=== PATIENT | male | born 1945 | race Caucasian/White ===

== ENCOUNTER 2018-07-05 16:14 | Inpatient (IN) ==
[2018-07-05] MEDS ORDERED: Sod Chloride 0.9% Inj 1,000 ML IV.CONT SCH (17:30)
--- NOTE | 2018-07-05 17:31 | ED ---
HPI General Chief Complaint: Weakness Stated Complaint: weakness Time Seen by Provider: 07/05/18 17:02 Source: patient and family Mode of arrival: ambulatory Limitations: no limitations History of Present Illness HPI Narrative: 72-year-old male was brought in by his for mental confusion and slurred speech. Patient's states that his symptoms started this afternoon around 2 PM. Patient's states that patient seemed to be confused and with slurring speech. Patient's reported no facial drooping, no weakness or numbness of the arms or legs. Patient's reported no history of TIA or CVA. Patient has history of atrial fibrillation on Xarelto. Patient also has history hypertension, diabetes and restless leg syndrome. Patient's reported no recent head injury. Onset (ago): hour(s) Timing confirmed by: spouse Location: Reports speech History of same: No Severity: moderate Quality: Reports constant Relieving factors: none Exacerbating factors: none Context: Reports sudden onset On Anticoagulants: Yes Associated symptoms: Reports confusion Treatments Prior to Arrival: Reports none Related Data Home Medications Medication Instructions Recorded Confirmed allopurinol 200 mg PO DAILY 06/16/18 07/05/18 dexlansoprazole [Dexilant] 60 mg PO DAILY 06/16/18 07/05/18 diltiazem HCl 300 mg PO DAILY 06/16/18 07/05/18 insulin NPH isoph U-100 human 48 unit SUBCUT QPM 06/16/18 07/05/18 rivaroxaban [Xarelto] 20 mg PO DAILY 06/16/18 07/05/18 sitagliptin-metformin [Janumet] 1 tab PO BID 06/16/18 07/05/18 candesartan-hydrochlorothiazid 1 tab PO DAILY 07/05/18 07/05/18 Previous Rx's Medication Instructions Recorded sertraline [Zoloft] 25 mg PO DAILY #30 tab 07/07/18 Allergies Allergy/AdvReac Type Severity Reaction Status Date / Time Iodine and Iodide Containing Allergy Severe Swelling Verified 06/16/18 12:30 Produc of Lip/Tongue/Throat meperidine [From Demerol] Allergy Severe Hives Verified 06/16/18 12:30 phenytoin [From Dilantin] Allergy Severe Hives Verified 06/16/18 12:30 Review of Systems ROS: all other systems reviewed are negative [facility] Medical History Medical History Afib (Acute) Diabetes (Acute) GERD (gastroesophageal reflux disease) (Acute) Gout (Acute) HTN (hypertension) (Acute) Surgical History Surgical History History of cholecystectomy (Acute) Social History Social History Substance History: No History of Abuse Second Hand Smoke Exposure: No Smoking Status: Never smoker Tobacco Type: Cigarettes How Often Do You Have a Drink Containing Alcohol: Never Recent Travel in [facility] within the Last 8 Weeks: No Recent Out of Country Travel within the Last 8 Weeks: No Immunization History Tetanus Immunization: Unsure Exam Narrative Exam Narrative: GENERAL: Well-nourished, well-developed patient. SKIN: Focused skin assessment warm/dry. HEAD: Normocephalic. EYES: No scleral icterus. No injection or drainage. NECK: Supple, trachea midline. No JVD or lymphadenopathy. CARDIOVASCULAR: Regular rate and rhythm without murmurs, gallops, or rubs. RESPIRATORY: Breath sounds equal bilaterally. No accessory muscle use. GASTROINTESTINAL: Abdomen soft, non-tender, nondistended. MUSCULOSKELETAL: No cyanosis, or edema. BACK: Nontender without obvious deformity. No CVA tenderness. Neurologic exam: Patient is awake and alert. Patient with mild slurring speech. Patient has no facial drooping. Patient has no weakness or numbness of the arms on the legs. Visual field intact. Course Initial Documented Vital Signs Pulse Rate 96 H 07/05/18 16:25 Respiratory Rate 17 07/05/18 16:25 Blood Pressure 182/89 H 07/05/18 16:25 Pulse Oximetry 100 07/05/18 16:25 Last Documented Vital Signs Temperature 97.7 F 07/07/18 08:00 Pulse Rate 87 07/07/18 08:00 Respiratory Rate 20 07/07/18 08:00 Blood Pressure 155/76 H 07/07/18 08:00 Pulse Oximetry 94 L 07/07/18 08:00 Sign Out Sign Out Data: Patient Sign Out occurred on 07/05/18 at 19:30. Patient's care was discussed, and care was transferred from [facility] to [facility]. Sign Out Comment: Check CMP. Patient will be admitted for TIA versus CVA. Last updated by Anders Patterson MD at 07/05/18 19:14 Post-Handoff Eval: Patient was signed out to me to follow-up on the CMP result. The previous ER physician who saw the patient diagnosed the patient with TIA given the history at the presentation. Please refer to his history and physical for further details. He had discussed the case with the hospitalist Dr. Mendez who wanted the CMP resulted prior to the admission. The signout to me was to follow-up on the CMP. The blood test results are back and within normal limits. Patient is admitted to the hospitalist at this point. Patient is a [place] citizen and the insurance details are being sorted out given [place]. Medical Decision Making MDM Narrative Medical decision making narrative: 72-year-old male with slurring speech started 2 PM this afternoon. Patient with mental confusion also. Patient has history of atrial fibrillation on Xarelto. Patient has history of severe allergy to IV contrast. I spoke with Dr. Sanchez, neurologist surgical product sales consultant. We will not call a stroke alert on the patient since we cannot do CTA or CT perfusion. Patient is on Xarelto. Normal saline solution 70 cc an hour. Head of bed flat. O2 2 L nasal cannula. Medical Screen Exam Complete: Yes Emergency Medical Condition: Yes Differential Diagnosis Differential Diagnosis: Differential diagnosis including TIA, CVA. Lab Data Lab results reviewed: Yes I reviewed the patient's lab results. Result diagrams: 07/07/18 06:16 07/07/18 06:16 Lab Results 07/05/18 07/05/18 07/05/18 Range/Units 17:30 17:30 17:30 WBC 13.5 H (4.0-11.0) th/mm3 RBC 4.67 (4.50-5.90) mil/mm3 Hgb 12.9 L (13.0-17.0) gm/dL Hct 39.1 (39.0-51.0) % MCV 83.8 (80.0-100.0) fL MCH 27.7 (27.0-34.0) pg MCHC 33.1 (32.0-36.0) % RDW 16.0 (11.6-17.2) % Plt Count 282 (150-450) th/mm3 MPV 9.6 (7.0-11.0) fL Neut % (Auto) 80.2 H (16.0-70.0) % Lymph % (Auto) 12.0 (9.0-44.0) % [place] % (Auto) 6.5 (0.0-8.0) % Eos % (Auto) 0.5 (0.0-4.0) % Baso % (Auto) 0.8 (0.0-2.0) % Neut # (Auto) 10.9 H (1.8-7.7) th/mm3 Lymph # (Auto) 1.6 (1.0-4.8) th/mm3 [place] # (Auto) 0.9 (0.0-0.9) th/mm3 Eos # (Auto) 0.1 (0.0-0.4) th/mm3 Baso # (Auto) 0.1 (0.0-0.2) th/mm3 WBC Differential . Differential Comment Auto diff final ESR (0-20) mm/hr PT 11.4 (9.8-11.6) sec INR 1.1 Ratio APTT 27.5 (23.4-31.7) sec Fibrinogen 370 (227-377) mg/dL Sodium (136-145) meq/L Potassium (3.5-5.1) meq/L Chloride (98-107) meq/L Carbon Dioxide (21.0-32.0) meq/L Anion Gap (5-15) meq/L BUN (7-18) mg/dL Creatinine (0.60-1.30) mg/dL Estimated GFR (>89) mL/min POC Glucose (68-110) mg/dl Random Glucose (74-106) mg/dL Hemoglobin A1c (4.3-6.0) % Calcium (8.5-10.1) mg/dL Magnesium (1.5-2.5) mg/dL Total Bilirubin (0.2-1.0) mg/dL AST (15-37) U/L ALT (12-78) U/L Alkaline Phosphatase (45-117) U/L Ammonia (11-32) mcmol/L Total Creatine Kinase 43 (39-308) U/L Troponin I Less than 0.02 L (0.02-0.05) ng/mL C-Reactive Protein (0.00-0.30) mg/dL Total Protein (6.4-8.2) g/dL Albumin (3.4-5.0) g/dL Triglycerides (42-150) mg/dL Cholesterol (120-200) mg/dL LDL Cholesterol, Calc (0-99) mg/dL HDL Cholesterol (40.0-60.0) mg/dL Cholesterol/HDL Ratio Ratio Aldolase (< OR = 8.1) U/L Vitamin B12 (193-986) pg/mL TSH (0.358-3.740) uIU/mL Urine Color (Yellw/Straw) Urine Clarity (Clear) Urine pH (5.0-8.5) Ur Specific [place] (1.002-1.035) Urine Protein (Neg-Trace) mg/dL Urine Glucose (UA) (Negative) mg/dL Urine Ketones (Negative) mg/dL Urine Occult Blood (Negative) Urine Nitrate (Negative) Urine Bilirubin (Negative) Urine Urobilinogen (Less than 2) mg/dL Ur Leukocyte Esterase (Negative) Urine RBC (0-3) /hpf Urine WBC (0-5) /hpf Ur Squamous Epith Cells (0-5) /hpf Hyaline Casts (0-3) /lpf Urine Mucus (Occasional) /lpf Micro UA Comment Ur Microscopic Review Urine Culture Comments Urine Opiates Screen (Neg) Ur Barbiturates Screen (Neg) Ur Amphetamines Screen (Neg) U Benzodiazepines Scrn (Neg) Urine Cocaine Screen (Neg) U Cannabinoids Screen (Neg) Blood Type Blood Type Recheck Antibody Screen 07/05/18 07/05/18 07/05/18 Range/Units 17:30 17:50 19:15 WBC (4.0-11.0) th/mm3 RBC (4.50-5.90) mil/mm3 Hgb (13.0-17.0) gm/dL Hct (39.0-51.0) % MCV (80.0-100.0) fL MCH (27.0-34.0) pg MCHC (32.0-36.0) % RDW (11.6-17.2) % Plt Count (150-450) th/mm3 MPV (7.0-11.0) fL Neut % (Auto) (16.0-70.0) % Lymph % (Auto) (9.0-44.0) % [place] % (Auto) (0.0-8.0) % Eos % (Auto) (0.0-4.0) % Baso % (Auto) (0.0-2.0) % Neut # (Auto) (1.8-7.7) th/mm3 Lymph # (Auto) (1.0-4.8) th/mm3 [place] # (Auto) (0.0-0.9) th/mm3 Eos # (Auto) (0.0-0.4) th/mm3 Baso # (Auto) (0.0-0.2) th/mm3 WBC Differential Differential Comment ESR (0-20) mm/hr PT (9.8-11.6) sec INR Ratio APTT (23.4-31.7) sec Fibrinogen (227-377) mg/dL Sodium 134 L (136-145) meq/L Potassium 3.6 (3.5-5.1) meq/L Chloride 98 (98-107) meq/L Carbon Dioxide 21.2 (21.0-32.0) meq/L Anion Gap 15 (5-15) meq/L BUN 13 (7-18) mg/dL Creatinine 1.38 H (0.60-1.30) mg/dL Estimated GFR 51 L (>89) mL/min POC Glucose (68-110) mg/dl Random Glucose 139 H (74-106) mg/dL Hemoglobin A1c (4.3-6.0) % Calcium 9.4 (8.5-10.1) mg/dL Magnesium (1.5-2.5) mg/dL Total Bilirubin 0.5 (0.2-1.0) mg/dL AST 15 (15-37) U/L ALT 20 (12-78) U/L Alkaline Phosphatase 108 (45-117) U/L Ammonia (11-32) mcmol/L Total Creatine Kinase (39-308) U/L Troponin I (0.02-0.05) ng/mL C-Reactive Protein (0.00-0.30) mg/dL Total Protein 7.5 (6.4-8.2) g/dL Albumin 3.6 (3.4-5.0) g/dL Triglycerides (42-150) mg/dL Cholesterol (120-200) mg/dL LDL Cholesterol, Calc (0-99) mg/dL HDL Cholesterol (40.0-60.0) mg/dL Cholesterol/HDL Ratio Ratio Aldolase (< OR = 8.1) U/L Vitamin B12 (193-986) pg/mL TSH (0.358-3.740) uIU/mL Urine Color Yellow (Yellw/Straw) Urine Clarity Hazy H (Clear) Urine pH 7.0 (5.0-8.5) Ur Specific [place] 1.013 (1.002-1.035) Urine Protein 30 H (Neg-Trace) mg/dL Urine Glucose (UA) Negative (Negative) mg/dL Urine Ketones 20 (Negative) mg/dL Urine Occult Blood Negative (Negative) Urine Nitrate Negative (Negative) Urine Bilirubin Negative (Negative) Urine Urobilinogen Less than 2 (Less than 2) mg/dL Ur Leukocyte Esterase Negative (Negative) Urine RBC 1 (0-3) /hpf Urine WBC 8 H (0-5) /hpf Ur Squamous Epith Cells 3 (0-5) /hpf Hyaline Casts 6 (0-3) /lpf Urine Mucus Many H (Occasional) /lpf Micro UA Comment Cath-culture ind Ur Microscopic Review Not Reportable Urine Culture Comments Cath-cult indicated Urine Opiates Screen (Neg) Ur Barbiturates Screen (Neg) Ur Amphetamines Screen (Neg) U Benzodiazepines Scrn (Neg) Urine Cocaine Screen (Neg) U Cannabinoids Screen (Neg) Blood Type O Positive Blood Type Recheck Required Antibody Screen Negative 07/06/18 07/06/18 07/06/18 Range/Units 00:21 06:27 07:36 WBC (4.0-11.0) th/mm3 RBC (4.50-5.90) mil/mm3 Hgb (13.0-17.0) gm/dL Hct (39.0-51.0) % MCV (80.0-100.0) fL MCH (27.0-34.0) pg MCHC (32.0-36.0) % RDW (11.6-17.2) % Plt Count (150-450) th/mm3 MPV (7.0-11.0) fL Neut % (Auto) (16.0-70.0) % Lymph % (Auto) (9.0-44.0) % [place] % (Auto) (0.0-8.0) % Eos % (Auto) (0.0-4.0) % Baso % (Auto) (0.0-2.0) % Neut # (Auto) (1.8-7.7) th/mm3 Lymph # (Auto) (1.0-4.8) th/mm3 [place] # (Auto) (0.0-0.9) th/mm3 Eos # (Auto) (0.0-0.4) th/mm3 Baso # (Auto) (0.0-0.2) th/mm3 WBC Differential Differential Comment ESR (0-20) mm/hr PT (9.8-11.6) sec INR Ratio APTT (23.4-31.7) sec Fibrinogen (227-377) mg/dL Sodium (136-145) meq/L Potassium (3.5-5.1) meq/L Chloride (98-107) meq/L Carbon Dioxide (21.0-32.0) meq/L Anion Gap (5-15) meq/L BUN (7-18) mg/dL Creatinine (0.60-1.30) mg/dL Estimated GFR (>89) mL/min POC Glucose 133 H 139 H (68-110) mg/dl Random Glucose (74-106) mg/dL Hemoglobin A1c 6.7 H (4.3-6.0) % Calcium (8.5-10.1) mg/dL Magnesium (1.5-2.5) mg/dL Total Bilirubin (0.2-1.0) mg/dL AST (15-37) U/L ALT (12-78) U/L Alkaline Phosphatase (45-117) U/L Ammonia (11-32) mcmol/L Total Creatine Kinase (39-308) U/L Troponin I (0.02-0.05) ng/mL C-Reactive Protein (0.00-0.30) mg/dL Total Protein (6.4-8.2) g/dL Albumin (3.4-5.0) g/dL Triglycerides (42-150) mg/dL Cholesterol (120-200) mg/dL LDL Cholesterol, Calc (0-99) mg/dL HDL Cholesterol (40.0-60.0) mg/dL Cholesterol/HDL Ratio Ratio Aldolase (< OR = 8.1) U/L Vitamin B12 (193-986) pg/mL TSH (0.358-3.740) uIU/mL Urine Color (Yellw/Straw) Urine Clarity (Clear) Urine pH (5.0-8.5) Ur Specific [place] (1.002-1.035) Urine Protein (Neg-Trace) mg/dL Urine Glucose (UA) (Negative) mg/dL Urine Ketones (Negative) mg/dL Urine Occult Blood (Negative) Urine Nitrate (Negative) Urine Bilirubin (Negative) Urine Urobilinogen (Less than 2) mg/dL Ur Leukocyte Esterase (Negative) Urine RBC (0-3) /hpf Urine WBC (0-5) /hpf Ur Squamous Epith Cells (0-5) /hpf Hyaline Casts (0-3) /lpf Urine Mucus (Occasional) /lpf Micro UA Comment Ur Microscopic Review Urine Culture Comments Urine Opiates Screen (Neg) Ur Barbiturates Screen (Neg) Ur Amphetamines Screen (Neg) U Benzodiazepines Scrn (Neg) Urine Cocaine Screen (Neg) U Cannabinoids Screen (Neg) Blood Type Blood Type Recheck Antibody Screen 07/06/18 07/06/18 07/06/18 Range/Units 07:36 08:17 10:05 WBC (4.0-11.0) th/mm3 RBC (4.50-5.90) mil/mm3 Hgb (13.0-17.0) gm/dL Hct (39.0-51.0) % MCV (80.0-100.0) fL MCH (27.0-34.0) pg MCHC (32.0-36.0) % RDW (11.6-17.2) % Plt Count (150-450) th/mm3 MPV (7.0-11.0) fL Neut % (Auto) (16.0-70.0) % Lymph % (Auto) (9.0-44.0) % [place] % (Auto) (0.0-8.0) % Eos % (Auto) (0.0-4.0) % Baso % (Auto) (0.0-2.0) % Neut # (Auto) (1.8-7.7) th/mm3 Lymph # (Auto) (1.0-4.8) th/mm3 [place] # (Auto) (0.0-0.9) th/mm3 Eos # (Auto) (0.0-0.4) th/mm3 Baso # (Auto) (0.0-0.2) th/mm3 WBC Differential Differential Comment ESR (0-20) mm/hr PT (9.8-11.6) sec INR Ratio APTT (23.4-31.7) sec Fibrinogen (227-377) mg/dL Sodium (136-145) meq/L Potassium (3.5-5.1) meq/L Chloride (98-107) meq/L Carbon Dioxide (21.0-32.0) meq/L Anion Gap (5-15) meq/L BUN (7-18) mg/dL Creatinine (0.60-1.30) mg/dL Estimated GFR (>89) mL/min POC Glucose 149 H (68-110) mg/dl Random Glucose (74-106) mg/dL Hemoglobin A1c (4.3-6.0) % Calcium (8.5-10.1) mg/dL Magnesium (1.5-2.5) mg/dL Total Bilirubin (0.2-1.0) mg/dL AST (15-37) U/L ALT (12-78) U/L Alkaline Phosphatase (45-117) U/L Ammonia (11-32) mcmol/L Total Creatine Kinase (39-308) U/L Troponin I (0.02-0.05) ng/mL C-Reactive Protein (0.00-0.30) mg/dL Total Protein (6.4-8.2) g/dL Albumin (3.4-5.0) g/dL Triglycerides 136 (42-150) mg/dL Cholesterol 113 L (120-200) mg/dL LDL Cholesterol, Calc 43 (0-99) mg/dL HDL Cholesterol 43.0 (40.0-60.0) mg/dL Cholesterol/HDL Ratio 2.62 Ratio Aldolase (< OR = 8.1) U/L Vitamin B12 (193-986) pg/mL TSH (0.358-3.740) uIU/mL Urine Color (Yellw/Straw) Urine Clarity (Clear) Urine pH (5.0-8.5) Ur Specific [place] (1.002-1.035) Urine Protein (Neg-Trace) mg/dL Urine Glucose (UA) (Negative) mg/dL Urine Ketones (Negative) mg/dL Urine Occult Blood (Negative) Urine Nitrate (Negative) Urine Bilirubin (Negative) Urine Urobilinogen (Less than 2) mg/dL Ur Leukocyte Esterase (Negative) Urine RBC (0-3) /hpf Urine WBC (0-5) /hpf Ur Squamous Epith Cells (0-5) /hpf Hyaline Casts (0-3) /lpf Urine Mucus (Occasional) /lpf Micro UA Comment Ur Microscopic Review Urine Culture Comments Urine Opiates Screen Neg (Neg) Ur Barbiturates Screen Neg (Neg) Ur Amphetamines Screen Neg (Neg) U Benzodiazepines Scrn Neg (Neg) Urine Cocaine Screen Neg (Neg) U Cannabinoids Screen Neg (Neg) Blood Type Blood Type Recheck Antibody Screen 07/06/18 07/06/18 07/06/18 Range/Units 12:21 12:21 12:21 WBC (4.0-11.0) th/mm3 RBC (4.50-5.90) mil/mm3 Hgb (13.0-17.0) gm/dL Hct (39.0-51.0) % MCV (80.0-100.0) fL MCH (27.0-34.0) pg MCHC (32.0-36.0) % RDW (11.6-17.2) % Plt Count (150-450) th/mm3 MPV (7.0-11.0) fL Neut % (Auto) (16.0-70.0) % Lymph % (Auto) (9.0-44.0) % [place] % (Auto) (0.0-8.0) % Eos % (Auto) (0.0-4.0) % Baso % (Auto) (0.0-2.0) % Neut # (Auto) (1.8-7.7) th/mm3 Lymph # (Auto) (1.0-4.8) th/mm3 [place] # (Auto) (0.0-0.9) th/mm3 Eos # (Auto) (0.0-0.4) th/mm3 Baso # (Auto) (0.0-0.2) th/mm3 WBC Differential Differential Comment ESR 12 (0-20) mm/hr PT (9.8-11.6) sec INR Ratio APTT (23.4-31.7) sec Fibrinogen (227-377) mg/dL Sodium (136-145) meq/L Potassium (3.5-5.1) meq/L Chloride (98-107) meq/L Carbon Dioxide (21.0-32.0) meq/L Anion Gap (5-15) meq/L BUN (7-18) mg/dL Creatinine (0.60-1.30) mg/dL Estimated GFR (>89) mL/min POC Glucose (68-110) mg/dl Random Glucose (74-106) mg/dL Hemoglobin A1c (4.3-6.0) % Calcium (8.5-10.1) mg/dL Magnesium (1.5-2.5) mg/dL Total Bilirubin (0.2-1.0) mg/dL AST (15-37) U/L ALT (12-78) U/L Alkaline Phosphatase (45-117) U/L Ammonia 16 (11-32) mcmol/L Total Creatine Kinase 77 (39-308) U/L Troponin I (0.02-0.05) ng/mL C-Reactive Protein 1.10 H (0.00-0.30) mg/dL Total Protein (6.4-8.2) g/dL Albumin (3.4-5.0) g/dL Triglycerides (42-150) mg/dL Cholesterol (120-200) mg/dL LDL Cholesterol, Calc (0-99) mg/dL HDL Cholesterol (40.0-60.0) mg/dL Cholesterol/HDL Ratio Ratio Aldolase (< OR = 8.1) U/L Vitamin B12 296 (193-986) pg/mL TSH 0.821 (0.358-3.740) uIU/mL Urine Color (Yellw/Straw) Urine Clarity (Clear) Urine pH (5.0-8.5) Ur Specific [place] (1.002-1.035) Urine Protein (Neg-Trace) mg/dL Urine Glucose (UA) (Negative) mg/dL Urine Ketones (Negative) mg/dL Urine Occult Blood (Negative) Urine Nitrate (Negative) Urine Bilirubin (Negative) Urine Urobilinogen (Less than 2) mg/dL Ur Leukocyte Esterase (Negative) Urine RBC (0-3) /hpf Urine WBC (0-5) /hpf Ur Squamous Epith Cells (0-5) /hpf Hyaline Casts (0-3) /lpf Urine Mucus (Occasional) /lpf Micro UA Comment Ur Microscopic Review Urine Culture Comments Urine Opiates Screen (Neg) Ur Barbiturates Screen (Neg) Ur Amphetamines Screen (Neg) U Benzodiazepines Scrn (Neg) Urine Cocaine Screen (Neg) U Cannabinoids Screen (Neg) Blood Type Blood Type Recheck Antibody Screen 07/06/18 07/06/18 07/06/18 Range/Units 12:21 12:37 16:39 WBC (4.0-11.0) th/mm3 RBC (4.50-5.90) mil/mm3 Hgb (13.0-17.0) gm/dL Hct (39.0-51.0) % MCV (80.0-100.0) fL MCH (27.0-34.0) pg MCHC (32.0-36.0) % RDW (11.6-17.2) % Plt Count (150-450) th/mm3 MPV (7.0-11.0) fL Neut % (Auto) (16.0-70.0) % Lymph % (Auto) (9.0-44.0) % [place] % (Auto) (0.0-8.0) % Eos % (Auto) (0.0-4.0) % Baso % (Auto) (0.0-2.0) % Neut # (Auto) (1.8-7.7) th/mm3 Lymph # (Auto) (1.0-4.8) th/mm3 [place] # (Auto) (0.0-0.9) th/mm3 Eos # (Auto) (0.0-0.4) th/mm3 Baso # (Auto) (0.0-0.2) th/mm3 WBC Differential Differential Comment ESR (0-20) mm/hr PT (9.8-11.6) sec INR Ratio APTT (23.4-31.7) sec Fibrinogen (227-377) mg/dL Sodium (136-145) meq/L Potassium (3.5-5.1) meq/L Chloride (98-107) meq/L Carbon Dioxide (21.0-32.0) meq/L Anion Gap (5-15) meq/L BUN (7-18) mg/dL Creatinine (0.60-1.30) mg/dL Estimated GFR (>89) mL/min POC Glucose 128 H 133 H (68-110) mg/dl Random Glucose (74-106) mg/dL Hemoglobin A1c (4.3-6.0) % Calcium (8.5-10.1) mg/dL Magnesium (1.5-2.5) mg/dL Total Bilirubin (0.2-1.0) mg/dL AST (15-37) U/L ALT (12-78) U/L Alkaline Phosphatase (45-117) U/L Ammonia (11-32) mcmol/L Total Creatine Kinase (39-308) U/L Troponin I (0.02-0.05) ng/mL C-Reactive Protein (0.00-0.30) mg/dL Total Protein (6.4-8.2) g/dL Albumin (3.4-5.0) g/dL Triglycerides (42-150) mg/dL Cholesterol (120-200) mg/dL LDL Cholesterol, Calc (0-99) mg/dL HDL Cholesterol (40.0-60.0) mg/dL Cholesterol/HDL Ratio Ratio Aldolase 4.1 (< OR = 8.1) U/L Vitamin B12 (193-986) pg/mL TSH (0.358-3.740) uIU/mL Urine Color (Yellw/Straw) Urine Clarity (Clear) Urine pH (5.0-8.5) Ur Specific [place] (1.002-1.035) Urine Protein (Neg-Trace) mg/dL Urine Glucose (UA) (Negative) mg/dL Urine Ketones (Negative) mg/dL Urine Occult Blood (Negative) Urine Nitrate (Negative) Urine Bilirubin (Negative) Urine Urobilinogen (Less than 2) mg/dL Ur Leukocyte Esterase (Negative) Urine RBC (0-3) /hpf Urine WBC (0-5) /hpf Ur Squamous Epith Cells (0-5) /hpf Hyaline Casts (0-3) /lpf Urine Mucus (Occasional) /lpf Micro UA Comment Ur Microscopic Review Urine Culture Comments Urine Opiates Screen (Neg) Ur Barbiturates Screen (Neg) Ur Amphetamines Screen (Neg) U Benzodiazepines Scrn (Neg) Urine Cocaine Screen (Neg) U Cannabinoids Screen (Neg) Blood Type Blood Type Recheck Antibody Screen 07/06/18 07/07/18 07/07/18 Range/Units 22:16 06:16 06:16 WBC 9.5 (4.0-11.0) th/mm3 RBC 4.73 (4.50-5.90) mil/mm3 Hgb 13.1 (13.0-17.0) gm/dL Hct 39.0 (39.0-51.0) % MCV 82.4 (80.0-100.0) fL MCH 27.6 (27.0-34.0) pg MCHC 33.5 (32.0-36.0) % RDW 16.4 (11.6-17.2) % Plt Count 274 (150-450) th/mm3 MPV 9.6 (7.0-11.0) fL Neut % (Auto) 62.1 (16.0-70.0) % Lymph % (Auto) 23.4 (9.0-44.0) % [place] % (Auto) 9.5 H (0.0-8.0) % Eos % (Auto) 3.8 (0.0-4.0) % Baso % (Auto) 1.2 (0.0-2.0) % Neut # (Auto) 5.9 (1.8-7.7) th/mm3 Lymph # (Auto) 2.2 (1.0-4.8) th/mm3 [place] # (Auto) 0.9 (0.0-0.9) th/mm3 Eos # (Auto) 0.4 (0.0-0.4) th/mm3 Baso # (Auto) 0.1 (0.0-0.2) th/mm3 WBC Differential . Differential Comment Auto diff final ESR (0-20) mm/hr PT (9.8-11.6) sec INR Ratio APTT (23.4-31.7) sec Fibrinogen (227-377) mg/dL Sodium 136 (136-145) meq/L Potassium 3.7 (3.5-5.1) meq/L Chloride 101 (98-107) meq/L Carbon Dioxide 23.9 (21.0-32.0) meq/L Anion Gap 11 (5-15) meq/L BUN 12 (7-18) mg/dL Creatinine 1.37 H (0.60-1.30) mg/dL Estimated GFR 51 L (>89) mL/min POC Glucose 142 H (68-110) mg/dl Random Glucose 141 H (74-106) mg/dL Hemoglobin A1c (4.3-6.0) % Calcium 9.3 (8.5-10.1) mg/dL Magnesium 2.1 (1.5-2.5) mg/dL Total Bilirubin (0.2-1.0) mg/dL AST (15-37) U/L ALT (12-78) U/L Alkaline Phosphatase (45-117) U/L Ammonia (11-32) mcmol/L Total Creatine Kinase (39-308) U/L Troponin I (0.02-0.05) ng/mL C-Reactive Protein (0.00-0.30) mg/dL Total Protein (6.4-8.2) g/dL Albumin (3.4-5.0) g/dL Triglycerides (42-150) mg/dL Cholesterol (120-200) mg/dL LDL Cholesterol, Calc (0-99) mg/dL HDL Cholesterol (40.0-60.0) mg/dL Cholesterol/HDL Ratio Ratio Aldolase (< OR = 8.1) U/L Vitamin B12 (193-986) pg/mL TSH (0.358-3.740) uIU/mL Urine Color (Yellw/Straw) Urine Clarity (Clear) Urine pH (5.0-8.5) Ur Specific [place] (1.002-1.035) Urine Protein (Neg-Trace) mg/dL Urine Glucose (UA) (Negative) mg/dL Urine Ketones (Negative) mg/dL Urine Occult Blood (Negative) Urine Nitrate (Negative) Urine Bilirubin (Negative) Urine Urobilinogen (Less than 2) mg/dL Ur Leukocyte Esterase (Negative) Urine RBC (0-3) /hpf Urine WBC (0-5) /hpf Ur Squamous Epith Cells (0-5) /hpf Hyaline Casts (0-3) /lpf Urine Mucus (Occasional) /lpf Micro UA Comment Ur Microscopic Review Urine Culture Comments Urine Opiates Screen (Neg) Ur Barbiturates Screen (Neg) Ur Amphetamines Screen (Neg) U Benzodiazepines Scrn (Neg) Urine Cocaine Screen (Neg) U Cannabinoids Screen (Neg) Blood Type Blood Type Recheck Antibody Screen 07/07/18 Range/Units 07:58 WBC (4.0-11.0) th/mm3 RBC (4.50-5.90) mil/mm3 Hgb (13.0-17.0) gm/dL Hct (39.0-51.0) % MCV (80.0-100.0) fL MCH (27.0-34.0) pg MCHC (32.0-36.0) % RDW (11.6-17.2) % Plt Count (150-450) th/mm3 MPV (7.0-11.0) fL Neut % (Auto) (16.0-70.0) % Lymph % (Auto) (9.0-44.0) % [place] % (Auto) (0.0-8.0) % Eos % (Auto) (0.0-4.0) % Baso % (Auto) (0.0-2.0) % Neut # (Auto) (1.8-7.7) th/mm3 Lymph # (Auto) (1.0-4.8) th/mm3 [place] # (Auto) (0.0-0.9) th/mm3 Eos # (Auto) (0.0-0.4) th/mm3 Baso # (Auto) (0.0-0.2) th/mm3 WBC Differential Differential Comment ESR (0-20) mm/hr PT (9.8-11.6) sec INR Ratio APTT (23.4-31.7) sec Fibrinogen (227-377) mg/dL Sodium (136-145) meq/L Potassium (3.5-5.1) meq/L Chloride (98-107) meq/L Carbon Dioxide (21.0-32.0) meq/L Anion Gap (5-15) meq/L BUN (7-18) mg/dL Creatinine (0.60-1.30) mg/dL Estimated GFR (>89) mL/min POC Glucose 140 H (68-110) mg/dl Random Glucose (74-106) mg/dL Hemoglobin A1c (4.3-6.0) % Calcium (8.5-10.1) mg/dL Magnesium (1.5-2.5) mg/dL Total Bilirubin (0.2-1.0) mg/dL AST (15-37) U/L ALT (12-78) U/L Alkaline Phosphatase (45-117) U/L Ammonia (11-32) mcmol/L Total Creatine Kinase (39-308) U/L Troponin I (0.02-0.05) ng/mL C-Reactive Protein (0.00-0.30) mg/dL Total Protein (6.4-8.2) g/dL Albumin (3.4-5.0) g/dL Triglycerides (42-150) mg/dL Cholesterol (120-200) mg/dL LDL Cholesterol, Calc (0-99) mg/dL HDL Cholesterol (40.0-60.0) mg/dL Cholesterol/HDL Ratio Ratio Aldolase (< OR = 8.1) U/L Vitamin B12 (193-986) pg/mL TSH (0.358-3.740) uIU/mL Urine Color (Yellw/Straw) Urine Clarity (Clear) Urine pH (5.0-8.5) Ur Specific [place] (1.002-1.035) Urine Protein (Neg-Trace) mg/dL Urine Glucose (UA) (Negative) mg/dL Urine Ketones (Negative) mg/dL Urine Occult Blood (Negative) Urine Nitrate (Negative) Urine Bilirubin (Negative) Urine Urobilinogen (Less than 2) mg/dL Ur Leukocyte Esterase (Negative) Urine RBC (0-3) /hpf Urine WBC (0-5) /hpf Ur Squamous Epith Cells (0-5) /hpf Hyaline Casts (0-3) /lpf Urine Mucus (Occasional) /lpf Micro UA Comment Ur Microscopic Review Urine Culture Comments Urine Opiates Screen (Neg) Ur Barbiturates Screen (Neg) Ur Amphetamines Screen (Neg) U Benzodiazepines Scrn (Neg) Urine Cocaine Screen (Neg) U Cannabinoids Screen (Neg) Blood Type Blood Type Recheck Antibody Screen Imaging Data Attestation: I personally reviewed and interpreted this imaging study as follows : Radiologist's impression: Carotid Doppler Study 07/05/18 00:00 CONCLUSION: 1. Mild elevation of the peak systolic velocity of the left ICA suggesting 50- 69% stenosis, although ICA/CCA ratio suggest less than 50% stenosis. CTA of the carotids would be more sensitive for luminal stenosis confirmation. 2. Less than 50% stenosis involving the right ICA. Chest X-Ray 07/05/18 17:21 CONCLUSION: The lungs are clear. Head CT 07/05/18 17:21 CONCLUSION: 1. No acute intracranial abnormality. 2. Remote small right frontoparietal mid convexity infarct. . Head MRI 07/05/18 17:36 CONCLUSION: 1. Senescent changes with probable remote focal infarct in the right frontal parietal mid convexities. 2. Prominent deep white matter T2 prolongation most likely secondary to small vessel ischemic disease. 3. No acute abnormality. Specifically, no acute hemorrhage, infarction or mass. Head MRA 07/05/18 17:36 CONCLUSION: 1. Negative MRA [place] ([place]) non contrast. 2. Patent left posterior communicating artery. Discharge Plan Discharge Disposition Patient Disposition: ED Admit(ED Internal Use Only) Discharge Condition Condition: Stable Discharge Order Discharge Orders: Discharge Order (Routine); Ordered 07/07/18 Ordered By: Jermaine Hoff ED Use Only Admit Order (Routine); Ordered 07/05/18 Ordered By: Paul Law Discharge Details Anticipated Discharge Date: 07/07/18 Diagnosis: Acute cerebrovascular accident (CVA) Physicians Team ED Provider: Paul Law Primary Care Provider: UNKNOWN, Attending Provider: Jermaine Hoff Other Providers: Ilan Sanchez Meghan Status ED Status: Left Department Discharge Information Discharge Date/Time: 07/05/18 23:35
--- NOTE | 2018-07-05 17:44 | XR ---
EXAM DATE: 07/05/2018 5:40 PM EST AGE/SEX: 72 years / Male INDICATIONS: Possible stroke alert CLINICAL DATA: This is the patient's initial encounter. Patient reports that signs and symptoms have been present for 1 day and indicates a pain score of 0/10. MEDICAL/SURGICAL HISTORY: . Diabetes. Gastroesophageal reflux disease. Hypertension. . Shandra cystectomy. COMPARISON: No prior exams available for comparison. FINDINGS: A single AP view of the chest demonstrates the lungs to be symmetrically aerated without evidence of mass, infiltrate or effusion. The cardiomediastinal contours are unremarkable. Osseous structures a re intact. CONCLUSION: The lungs are clear. Electronically signed by: Jesse Bradley MD Board Certified Radiologist 07/05/2018 5:42 PM EST
[2018-07-05 17:57] LABS: Baso # (Auto) 0.1 th/mm3 (0.0-0.2); Baso % (Auto) 0.8 % (0.0-2.0); Eos # (Auto) 0.1 th/mm3 (0.0-0.4); Eos % (Auto) 0.5 % (0.0-4.0); Hematocrit 39.1 % (39.0-51.0); Hemoglobin 12.9 gm/dL (13.0-17.0); Lymph # (Auto) 1.6 th/mm3 (1.0-4.8); Mean Corpuscular HGB Conc 33.1 % (32.0-36.0); Mean Corpuscular Hemoglobin 27.7 pg (27.0-34.0); Mean Corpuscular Volume 83.8 fL (80.0-100.0); Mean Platelet Volume 9.6 fL (7.0-11.0); Mono # (Auto) 0.9 th/mm3 (0.0-0.9); Mono % (Auto) 6.5 % (0.0-8.0); Neut # (Auto) 10.9 th/mm3 (1.8-7.7); Neut % (Auto) 80.2 % (16.0-70.0); Platelet Count 282 th/mm3 (150-450); Red Blood Count 4.67 mil/mm3 (4.50-5.90); White Blood Count 13.5 th/mm3 (4.0-11.0)
[2018-07-05 18:19] LABS: Activated Partial Thrombo Time 27.5 sec (23.4-31.7); INR 1.1 Ratio; Prothrombin Time 11.4 sec (9.8-11.6)
[2018-07-05 18:24] LABS: Creatine Kinase 43 U/L (39-308)
[2018-07-05 18:28] LABS: Bilirubin,Urine Negative (Negative); Clarity,Urine Hazy (Clear); Color,Urine Yellow (Yellw/Straw); Glucose,Urine (UA) Negative (Negative); Hyaline Casts,Urine 6 /lpf (0-3); Leukocyte Esterase,Urine Negative (Negative); Mucus,Urine Many /lpf (Occasional); Nitrite,Urine Negative (Negative); Specific Gravity,Urine 1.013 (1.002-1.035); Squamous Epithelial Cell,Urine 3 /hpf (0-5)
--- NOTE | 2018-07-05 18:39 | MR ---
EXAM DATE: 07/05/2018 6:33 PM EST AGE/SEX: 72 years / Male INDICATIONS: Right sided weakness. CLINICAL DATA: This is the patient's initial encounter. Patient reports that signs and symptoms have been present for 1 day and indicates a pain score of 0/10. MEDICAL/SURGICAL HISTORY: Diabetes mellitus type II. Hypertension. Gastroesophageal reflux di sease. Inguinal hernia repair. Cholecystectomy. [place] [facility] [place]. . TECHNIQUE: 3D [id number] MRA was performed. Source images, multiplanar STS MIP, and 3D volum e MIP reconstructions were reviewed. FINDINGS: There is excellent visualization of the major intracranial arteries out to the second-order branch ve ssels. There is no evidence for aneurysm, vessel truncation or stenosis, and no evidence for vascula r malformation. There is a patent left posterior communicating artery which fills the left posterior cerebral artery. CONCLUSION: 1. Negative MRA Cow ([place]) non contrast. 2. Patent left posterior communicating artery. Electronically signed by: Jesse Bradley MD Board Certified Radiologist 07/05/2018 6:38 PM EST
--- NOTE | 2018-07-05 18:39 | MR ---
EXAM DATE: 07/05/2018 6:33 PM EST AGE/SEX: 72 years / Male INDICATIONS: Right sided weakness. CLINICAL DATA: This is the patient's initial encounter. Patient reports that signs and symptoms have been present for 1 day and indicates a pain score of 0/10. MEDICAL/SURGICAL HISTORY: Diabetes mellitus type II. Hypertension. Gastroesophageal reflux di sease. Inguinal hernia repair. Cholecystectomy. COMPARISON: No prior exams available for comparison. TECHNIQUE: Multiplanar, multisequence examination of the brain was performed without contrast. FINDINGS: Cerebrum: Focal T2 prolongation and volume loss in the right frontoparietal mid convexities without associated diffusion are mildly. Mild to moderate diffuse cerebral volume loss. The ventricles are no rmal for age. No evidence of midline shift, mass lesion, hemorrhage or acute infarction. No extraax ial fluid collections are seen. The pituitary gland and suprasellar cistern are normal in configurat ion. White Matter: Mild periventricular with prominent deep white matter T2 prolongation. Posterior Fossa: The cerebellum and brainstem are intact. The 4th ventricle is midline. The cerebel lopontine angle is unremarkable. The cerebellar tonsils are normal in position. Diffusion Imaging: No focal areas of restricted diffusion are seen. No evidence of acute infarction . Extracranial: The visualized portions of the orbits and paranasal sinuses are unremarkable. CONCLUSION: 1. Senescent changes with probable remote focal infarct in the right frontal parietal mid convexitie s. 2. Prominent deep white matter T2 prolongation most likely secondary to small vessel ischemic diseas e. 3. No acute abnormality. Specifically, no acute hemorrhage, infarction or mass. Electronically signed by: Kaden Aviles MD Board Certified Radiologist 07/05/2018 6:38 PM [facility]
--- NOTE | 2018-07-05 18:52 | CT ---
EXAM DATE: 07/05/2018 6:49 PM EST AGE/SEX: 72 years / Male INDICATIONS: Altered mental status. Possible stroke. CLINICAL DATA: This is the patient's initial encounter. Patient reports that signs and symptoms have been present for 4 - 6 days and indicates a pain score of 0/10. MEDICAL/SURGICAL HISTORY: Cardiovascular disease. Hypertension. Diabetes mellitus type II. GERD Cholecystectomy. RADIATION DOSE: 36.43 CTDI (mGy) COMPARISON: No prior exams available for comparison. TECHNIQUE: CT of the head without contrast. Using automated exposure control and adjustment of the mA and/or kV according to patient size, radiation dose was kept as low as reasonably achievable to ob tain optimal diagnostic quality images. DICOM format image data is available electronically for revi ew and comparison. FINDINGS: Cerebrum: Moderate diffuse cerebral atrophy. Focal encephalomalacia in the right frontoparietal mid convexities. The ventricles are normal for degree of atrophy. No evidence of midline shift, mass lesi on, hemorrhage or acute infarction. No extraaxial fluid collections are seen. Posterior Fossa: Periventricular white matter hypodensities. Extracranial: The visualized portion of the orbits is intact. Skull: The calvaria is intact. No evidence of skull fracture. CONCLUSION: 1. No acute intracranial abnormality. 2. Remote small right frontoparietal mid convexity infarct. . Electronically signed by: Kaden Aviles MD Board Certified Radiologist 07/05/2018 6:51 PM [facility]
[2018-07-05 19:31] LABS: Albumin 3.6 g/dL (3.4-5.0); Anion Gap 15 meq/L (5-15); Aspartate Aminotransferase 15 U/L (15-37); Blood Urea Nitrogen 13 mg/dL (7-18); Calcium 9.4 mg/dL (8.5-10.1); Carbon Dioxide 21.2 meq/L (21.0-32.0); Chloride 98 meq/L (98-107); Glomerular Filtration Rate 51 mL/min (>89); Glucose,Random 139 mg/dL (74-106); Potassium 3.6 meq/L (3.5-5.1); Sodium 134 meq/L (136-145)
[2018-07-05 19:32] LABS: Alanine Aminotransferase 20 U/L (12-78)
[2018-07-05 19:35] LABS: Alkaline Phosphatase 108 U/L (45-117); Total Protein 7.5 g/dL (6.4-8.2)
[2018-07-05] MEDS ORDERED: Dextrose 50% in Water 50 ML Vial IV.PUSH PRN (21:04)
--- NOTE | 2018-07-05 21:11 | P.HP ---
History of Present Illness Service: [facility] Primary Care Physician: UNKNOWN History of Present Illness: 72-year-old male with a past medical history significant for diabetes mellitus, hypertension, a fib anticoagulated on Xarelto, gastroparesis and depression presents to the emergency department for acute onset dysarthria and confusion. The patient reports that at approximately 2 PM this afternoon he became unable to speak coherently, confused and when he was able to speak again his speech was slurred according to his . He states he has not been feeling well for approximately 1 month. He complains of dizziness and fatigue. For the past 2 days he has had nausea and associated anorexia. He is also had increased lower extremity twitching for the past 2-3 days which is not baseline. He denies any chest pain or shortness of breath. No fever/chills. Review of Systems All other systems reviewed negative except as stated in HPI [facility] - History History Provided By: Patient - Medical History Medical History: Medical History (Last Updated 07/05/18 @ 21:02 by Stephania Mendez MD) Family history normal Afib Diabetes GERD (gastroesophageal reflux disease) Gout HTN (hypertension) - Surgical History Surgical History: Surgical History (Last Reviewed 07/05/18 @ 21:02 by Stephania Mendez MD) History of cholecystectomy - Tobacco History Second Hand Smoke Exposure: No Tobacco Use In Past 30 Days: No Smoking Status: Former smoker Tobacco Type: Cigarettes - Alcohol History How Often Do You Have a Drink Containing Alcohol: Never - Substance Use History Substance History: No History of Abuse - Travel History Recent Travel in the [facility] Within the Last 8 Weeks: No Recent Travel Out of the Country Within the Last 8 Weeks: No - Immunization History Tetanus Immunization: Unsure Medications and Allergies Active Medications: Active Medications Sodium Chloride (Ns Inj) 1,000 mls @ 70 mls/hr IV.CONT .[id number] [facility] Last Admin: 07/05/18 19:32 Dose: 70 mls/hr Allergies Allergy/AdvReac Type Severity Reaction Status Date / Time Iodine and Iodide Containing Allergy Severe Swelling Verified 06/16/18 12:30 Produc of Lip/Tongue/Throat meperidine [From Demerol] Allergy Severe Hives Verified 06/16/18 12:30 phenytoin [From Dilantin] Allergy Severe Hives Verified 06/16/18 12:30 Home Medications Medication Instructions Recorded Confirmed Type allopurinol 200 mg PO DAILY 06/16/18 07/05/18 History dexlansoprazole [Dexilant] 60 mg PO DAILY 06/16/18 07/05/18 History diltiazem HCl 300 mg PO DAILY 06/16/18 07/05/18 History insulin NPH isoph U-100 human 48 unit SUBCUT QPM 06/16/18 07/05/18 History ranitidine HCl [Zantac] 150 mg PO DAILY 06/16/18 07/05/18 History rivaroxaban [Xarelto] 20 mg PO DAILY 06/16/18 07/05/18 History sitagliptin-metformin [Janumet] 1 tab PO BID 06/16/18 07/05/18 History candesartan-hydrochlorothiazid 1 tab PO DAILY 07/05/18 07/05/18 History Exam Vital signs: Vital Signs 07/05/18 16:25 07/05/18 16:37 07/05/18 17:21 Temperature 97.8 F Pulse Rate 96 H 97 H Respiratory Rate 17 17 Blood Pressure 182/89 H 168/81 H Pulse Oximetry 100 100 100 07/05/18 17:53 07/05/18 19:15 Temperature Pulse Rate 91 H 87 Respiratory Rate 17 20 Blood Pressure 193/86 H 160/70 H Pulse Oximetry 100 98 Intake & Output 07/05/18 07/05/18 07/06/18 06:59 18:59 06:59 Weight 113.398 kg Narrative: Gen.: No acute distress Head: Normocephalic. Atraumatic. EENT: Pupils equal round and reactive to light. Nose without drainage. Airway intact. Throat without injection. Cardiovascular: Regular rate and rhythm. No murmurs, rubs or gallops. Respiratory: Lungs clear to auscultation bilaterally. No wheezes or rhonchi. Abdomen: Soft, nontender, nondistended. No peritoneal signs. Musculoskeletal: No gross deformities. No edema. Skin: No obvious rashes or erythema. Neuro: Cranial nerves II through XII intact. Strength 5/5 throughout. No sensory deficits. Mild slurred speech. Results - Labs CBC & Chem 7: 07/05/18 17:30 07/05/18 17:30 Labs: Laboratory Results - last 24 hr 07/05/18 07/05/18 07/05/18 17:30 17:30 17:30 WBC 13.5 H RBC 4.67 Hgb 12.9 L Hct 39.1 MCV 83.8 MCH 27.7 MCHC 33.1 RDW 16.0 Plt Count 282 MPV 9.6 Neut % (Auto) 80.2 H Lymph % (Auto) 12.0 [place] % (Auto) 6.5 Eos % (Auto) 0.5 Baso % (Auto) 0.8 Neut # (Auto) 10.9 H Lymph # (Auto) 1.6 [place] # (Auto) 0.9 Eos # (Auto) 0.1 Baso # (Auto) 0.1 WBC Differential . Differential Comment Auto diff final PT 11.4 INR 1.1 APTT 27.5 Fibrinogen 370 Sodium Potassium Chloride Carbon Dioxide Anion Gap BUN Creatinine Estimated GFR Random Glucose Calcium Total Bilirubin AST ALT Alkaline Phosphatase Total Creatine Kinase 43 Troponin I Less than 0.02 L Total Protein Albumin Urine Color Urine Clarity Urine pH Ur Specific [place] Urine Protein Urine Glucose (UA) Urine Ketones Urine Occult Blood Urine Nitrate Urine Bilirubin Urine Urobilinogen Ur Leukocyte Esterase Urine RBC Urine WBC Ur Squamous Epith Cells Hyaline Casts Urine Mucus Micro UA Comment Ur Microscopic Review Urine Culture Comments Blood Type Blood Type Recheck Antibody Screen 07/05/18 07/05/18 07/05/18 17:30 17:50 19:15 WBC RBC Hgb Hct MCV MCH MCHC RDW Plt Count MPV Neut % (Auto) Lymph % (Auto) [place] % (Auto) Eos % (Auto) Baso % (Auto) Neut # (Auto) Lymph # (Auto) [place] # (Auto) Eos # (Auto) Baso # (Auto) WBC Differential Differential Comment PT INR APTT Fibrinogen Sodium 134 L Potassium 3.6 Chloride 98 Carbon Dioxide 21.2 Anion Gap 15 BUN 13 Creatinine 1.38 H Estimated GFR 51 L Random Glucose 139 H Calcium 9.4 Total Bilirubin 0.5 AST 15 ALT 20 Alkaline Phosphatase 108 Total Creatine Kinase Troponin I Total Protein 7.5 Albumin 3.6 Urine Color Yellow Urine Clarity Hazy H Urine pH 7.0 Ur Specific [place] 1.013 Urine Protein 30 H Urine Glucose (UA) Negative Urine Ketones 20 Urine Occult Blood Negative Urine Nitrate Negative Urine Bilirubin Negative Urine Urobilinogen Less than 2 Ur Leukocyte Esterase Negative Urine RBC 1 Urine WBC 8 H Ur Squamous Epith Cells 3 Hyaline Casts 6 Urine Mucus Many H Micro UA Comment Cath-culture ind Ur Microscopic Review Not Reportable Urine Culture Comments Cath-cult indicated Blood Type O Positive Blood Type Recheck Required Antibody Screen Negative - Imaging Impressions Chest X-Ray 07/05/18 17:21 CONCLUSION: The lungs are clear. Head CT 07/05/18 17:21 CONCLUSION: 1. No acute intracranial abnormality. 2. Remote small right frontoparietal mid convexity infarct. . Head MRI 07/05/18 17:36 CONCLUSION: 1. Senescent changes with probable remote focal infarct in the right frontal parietal mid convexities. 2. Prominent deep white matter T2 prolongation most likely secondary to small vessel ischemic disease. 3. No acute abnormality. Specifically, no acute hemorrhage, infarction or mass. Head MRA 07/05/18 17:36 CONCLUSION: 1. Negative MRA Cow ([place]) non contrast. 2. Patent left posterior communicating artery. Caprini VTE Risk Assessment Caprini VTE Risk Assessment: Moderate/High Risk (score >= 2) Caprini Risk Assessment Model: Point Value = 1 Point Value = 2 Point Value = 3 Point Value = 5 Age 41-60 Minor surgery BMI > 25 kg/m2 Swollen legs Varicose veins or History of unexplained or recurrent spontaneous Oral contraceptives or hormone replacement Sepsis (< 1 month) Serious lung disease, including pneumonia (< 1 month) Abnormal pulmonary function Acute myocardial infarction Congestive heart failure (< 1 month) History of inflammatory bowel disease Medical patient at bed rest Age 61-74 Arthroscopic surgery Major open surgery (> 45 min) Laparoscopic surgery (> 45 min) Malignancy Confined to bed (> 72 hours) Immobilizing plaster cast Central venous access Age >= 75 History of VTE Family history of VTE Factor V Leiden Prothrombin [id number] Lupus anticoagulant Anticardiolipin antibodies Elevated serum homocysteine Heparin-induced thrombocytopenia Other congenital or acquired thrombophilia Stroke (< 1 month) Elective arthroplasty Hip, pelvis, or leg fracture Acute spinal cord injury (< 1 month) Prophylaxis Regimen: Total Risk Factor Score Risk Level Prophylaxis Regimen 0-1 Low Early ambulation 2 Moderate Order ONE of the following: *Sequential Compression Device (SCD) *Heparin 5000 units SQ BID 3-4 Higher Order ONE of the following medications: *Heparin 5000 units SQ TID *Enoxaparin/Lovenox 40 mg SQ daily (WT < 150 kg, CrCl > 30 mL/min) *Enoxaparin/Lovenox 30 mg SQ daily (WT < 150 kg, CrCl > 10-29 mL/min) *Enoxaparin/Lovenox 30 mg SQ BID (WT < 150 kg, CrCl > 30 mL/min) AND/OR *Sequential Compression Device (SCD) 5 or more Highest Order ONE of the following medications: *Heparin 5000 units SQ TID (Preferred with Epidurals) *Enoxaparin/Lovenox 40 mg SQ daily (WT < 150 kg, CrCl > 30 mL/min) *Enoxaparin/Lovenox 30 mg SQ daily (WT < 150 kg, CrCl > 10-29 mL/min) *Enoxaparin/Lovenox 30 mg SQ BID (WT < 150 kg, CrCl > 30 mL/min) AND *Sequential Compression Device (SCD) Assessment and Plan - Plan Assessment/plan: 1. ? CVA Head CT negative for acute intracranial abnormality Head MRA showed negative [place] and patent left posterior communicating artery Head MRI showed remote focal infarct in the right frontal parietal mid convexities with prominent deep white matter T2 prolongation most likely secondary to small vessel ischemic disease. No acute abnormality identified. Carotid ultrasound/echo pending Neurology consulted, appreciate assistance Head of bed flat Permissive hypertension PT/OT/speech 2. Atrial fibrillation Continue home diltiazem Continue anticoagulation with Xarelto as no bleed seen on imaging 3. Diabetes mellitus Sliding scale insulin as patient n.p.o. Monitor blood glucose 4. GERD/gastroparesis/hypertension Continue home medications 5. Chronic kidney disease Creatinine 1.38, baseline Monitor renal function Patient has [place] insurance - phone: , file #[id number]. Request all medical records be emailed to: [email or web address] Case management consulted to assist with this. FEN N.p.o. Electrolytes: Monitor and replete as needed NS at 70 cc/hour Xarelto
[2018-07-05] MEDS: Sod Chloride 0.9% Inj 1,000 ML IV.CONT SCH (21:48)
--- NOTE | 2018-07-05 22:17 | US ---
EXAM DATE: 07/05/2018 10:10 PM EST AGE/SEX: 72 years / Male INDICATIONS: CVA. CLINICAL DATA: This is the patient's initial encounter. Patient reports that signs and symptoms have been present for 1 day and indicates a pain score of 0/10. MEDICAL/SURGICAL HISTORY: Diabetes. Gastroesophageal reflux disease. Hypertension. A-fib. Go ut. Cholecystectomy. COMPARISON: No prior exams available for comparison. VELOCITY PARAMETERS: ICA/CCA Ratio: Right 1.0 , Left 1.3 ICA: Right 101 cm/sec, Left 150 cm/sec CCA: Right 103 cm/sec, Left 115 cm/sec ECA: Right 151 cm/sec, Left 146 cm/sec Vertebral: Right 53 cm/sec antegrade, Left 35 cm/sec antegrade FINDINGS: Right Carotid: Moderate arteriosclerotic plaque is visualized.The waveforms are within normal limits . Left Carotid: Moderate arteriosclerotic plaque is visualized. There is mild elevation of the peak sy stolic velocity of the left ICA suggesting 50-69% stenosis, although ICA/CCA ratio suggest less than 50% stenosis. CTA of the carotids would be more sensitive for luminal stenosis confirmation. The wave forms are within normal limits. Other: None. CONCLUSION: 1. Mild elevation of the peak systolic velocity of the left ICA suggesting 50-69% stenosis, although ICA/CCA ratio suggest less than 50% stenosis. CTA of the carotids would be more sensitive for lumina l stenosis confirmation. 2. Less than 50% stenosis involving the right ICA. Electronically signed by: Jesse Bradley MD Board Certified Radiologist 07/05/2018 10:16 PM EST
[2018-07-06] MEDS: Insulin NovoLOG Aspart Correctional Sugar Inj SQ SCH ×4 (08:18→23:54)
[2018-07-06] MEDS: Rivaroxaban 20 MG Tablet PO SCH (08:35)
[2018-07-06] MEDS: dilTIAZem CD 300 MG Capsule PO SCH (08:35)
[2018-07-06] MEDS: Allopurinol 100 MG Tablet PO SCH (08:42)
[2018-07-06] MEDS: Famotidine 20 MG Tablet PO SCH (08:42)
--- NOTE | 2018-07-06 09:09 | P.PNIM ---
Subjective Interval history: Follow-up confusion and dysarthria. He is feeling better without confusion and dysarthria. He has chronic urinary frequency Physical Exam Vital signs: Last Vital Signs Temp 97.4 F L 07/06/18 04:00 Pulse 80 07/06/18 04:00 Resp 20 07/06/18 04:00 BP 113/58 L 07/06/18 04:00 Pulse Ox 95 07/06/18 04:00 Intake & Output 07/04/18 07/05/18 07/06/18 07/07/18 06:59 06:59 06:59 06:59 Intake Total 210 / 210 790 / 790 Balance 210 / 210 790 / 790 Weight 113.398 kg Narrative: Gen.: No acute distress Head: Normocephalic. Atraumatic. Cardiovascular: Regular rate and rhythm. No murmurs, rubs or gallops. Respiratory: Lungs clear to auscultation bilaterally. No wheezes or rhonchi. Abdomen: Soft, nontender, nondistended. No peritoneal signs. Musculoskeletal: No gross deformities. No edema. Skin: No obvious rashes or erythema. Neuro: Cranial nerves II through XII intact. Strength 5/5 throughout. No sensory deficits. Results Labs CBC & Chem 7: 07/05/18 17:30 07/05/18 17:30 Imaging Imaging: ITS Impressions Carotid Doppler Study 07/05/18 00:00 CONCLUSION: 1. Mild elevation of the peak systolic velocity of the left ICA suggesting 50- 69% stenosis, although ICA/CCA ratio suggest less than 50% stenosis. CTA of the carotids would be more sensitive for luminal stenosis confirmation. 2. Less than 50% stenosis involving the right ICA. Chest X-Ray 07/05/18 17:21 CONCLUSION: The lungs are clear. Head CT 07/05/18 17:21 CONCLUSION: 1. No acute intracranial abnormality. 2. Remote small right frontoparietal mid convexity infarct. . Head MRI 07/05/18 17:36 CONCLUSION: 1. Senescent changes with probable remote focal infarct in the right frontal parietal mid convexities. 2. Prominent deep white matter T2 prolongation most likely secondary to small vessel ischemic disease. 3. No acute abnormality. Specifically, no acute hemorrhage, infarction or mass. Head MRA 07/05/18 17:36 CONCLUSION: 1. Negative MRA Cow ([place]) non contrast. 2. Patent left posterior communicating artery. Assessment and Plan Plan 1. Confusion and dysarthria Head CT negative for acute intracranial abnormality Head MRA showed negative [place] and patent left posterior communicating artery Head MRI showed remote focal infarct in the right frontal parietal mid convexities with prominent deep white matter T2 prolongation most likely secondary to small vessel ischemic disease. No acute abnormality identified. Carotid ultrasound/echo pending Neurology consulted, appreciate assistance. Ordered EEG PT/OT/speech LDL 43 2. Atrial fibrillation Continue home diltiazem Continue anticoagulation with Xarelto as no bleed seen on imaging 3. Diabetes mellitus Sliding scale insulin and restart long-acting insulin if tolerating p.o. Monitor blood glucose 4. GERD/gastroparesis/hypertension Continue home medications 5. Chronic kidney disease probably stage III Creatinine 1.38, baseline Monitor renal function 6. Leukocytosis with abnormal urinalysis. Follow-up urine culture. Empiric Rocephin Patient has [employer] insurance - phone: , file #[id number]. Request all medical records be emailed to: [email or web address] Case management consulted to assist with this. FEN Diabetic diet Electrolytes: Monitor and replete as needed NS at 70 cc/hour will be discontinued if not orthostatic Xarelto Progress Note: Quality VTE Deep Vein Thrombosis/Pulmonary Embolism Present on Admission: No
--- NOTE | 2018-07-06 10:02 | P.CONNEU ---
History of Present Illness Service: Neurology Primary Care Provider: UNKNOWN Chief Complaint: stroke History of Present Illness: 72-year-old male admitted for possible TIA, weakness. History of pulmonary embolus on Xarelto was on Coumadin in the past. But his are from [facility] that is really received her health care. He has been feeling weak generalized fashion with past couple months. Gets lightheaded worse upon standing. Denies any vertigo sensation any spine pain or radicular symptoms or any bowel bladder incontinence. Some remote history of stroke possibly hemorrhagic they state over 20 years ago treated and came back. Gets a rare frontal headache no temporal pain no jaw claudication fever night sweats or chills. CT brain scan did not show any acute lesion. Systolic blood pressure noted be 180s 190s systolic in the ER. Review of Systems All other systems reviewed negative except as stated in [facility] - History History Provided By: Patient - Medical History Medical History: Medical History (Last Reviewed 07/06/18 @ 09:32 by Monica Lopez) Family history normal Afib Diabetes GERD (gastroesophageal reflux disease) Gout HTN (hypertension) - Surgical History Surgical History: Surgical History (Last Reviewed 07/06/18 @ 09:32 by Monica Lopez) History of cholecystectomy - Tobacco History Second Hand Smoke Exposure: No Tobacco Use In Past 30 Days: No Smoking Status: Never smoker Tobacco Type: Cigarettes - Alcohol History How Often Do You Have a Drink Containing Alcohol: Never - Substance Use History Substance History: No History of Abuse - Travel History Recent Travel in the [place] Within the Last 8 Weeks: No Recent Travel Out of the Country Within the Last 8 Weeks: No - Immunization History Tetanus Immunization: Unsure Medications and Allergies Active Medications: Active Medications Allopurinol (Zyloprim) 200 mg PO DAILY [facility] Last Admin: 07/06/18 08:42 Dose: 200 mg Dextrose (D50w Vial) 50 ml IV.PUSH UNSCH PRN PRN Reason: PER HYPOGLYCEMIA PROTOCOL Diltiazem HCl (Cardizem Cd 24hr) 300 mg PO DAILY [facility] Last Admin: 07/06/18 08:35 Dose: 300 mg Famotidine (Pepcid) 20 mg PO DAILY [facility] Last Admin: 07/06/18 08:42 Dose: 20 mg Glucagon (Glucagon Inj) 1 mg OTHER UNSCH PRN PRN Reason: for Hypoglycemia Protocol Hydrochlorothiazide (Microzide) 12.5 mg PO DAILY [facility] Last Admin: 07/06/18 08:42 Dose: 12.5 mg Sodium Chloride (Ns Inj) 1,000 mls @ 70 mls/hr IV.CONT .[id number] [facility] Last Admin: 07/05/18 21:48 Dose: 70 mls/hr Insulin Aspart (Novolog Insulin Correctional Sugar Inj) 0 unit SQ ACHS [facility]; Protocol Last Admin: 07/06/18 08:18 Dose: Not Given Losartan Potassium (Cozaar) 1 mg PO DAILY [facility] Last Admin: 07/06/18 08:36 Dose: 1 mg Pantoprazole Sodium (Protonix) 60 mg PO DAILY [facility] Last Admin: 07/06/18 08:40 Dose: 60 mg Rivaroxaban (Xarelto) 20 mg PO DAILY [facility] Last Admin: 07/06/18 08:35 Dose: 20 mg Sodium Chloride (Ns Flush) 2 ml IV.FLUSH BID [facility] Last Admin: 07/06/18 08:43 Dose: 2 ml Sodium Chloride (Ns Flush) 2 ml IV.FLUSH PRN PRN PRN Reason: FLUSH AFTER USING IV ACCESS Allergies Allergy/AdvReac Type Severity Reaction Status Date / Time Iodine and Iodide Containing Allergy Severe Swelling Verified 06/16/18 12:30 Produc of Lip/Tongue/Throat meperidine [From Demerol] Allergy Severe Hives Verified 06/16/18 12:30 phenytoin [From Dilantin] Allergy Severe Hives Verified 06/16/18 12:30 Home Medications Medication Instructions Recorded Confirmed Type allopurinol 200 mg PO DAILY 06/16/18 07/05/18 History dexlansoprazole [Dexilant] 60 mg PO DAILY 06/16/18 07/05/18 History diltiazem HCl 300 mg PO DAILY 06/16/18 07/05/18 History insulin NPH isoph U-100 human 48 unit SUBCUT QPM 06/16/18 07/05/18 History ranitidine HCl [Zantac] 150 mg PO DAILY 06/16/18 07/05/18 History rivaroxaban [Xarelto] 20 mg PO DAILY 06/16/18 07/05/18 History sitagliptin-metformin [Janumet] 1 tab PO BID 06/16/18 07/05/18 History candesartan-hydrochlorothiazid 1 tab PO DAILY 07/05/18 07/05/18 History Exam Vital signs: Vital Signs 07/05/18 16:25 07/05/18 16:37 07/05/18 17:21 Temperature 97.8 F Pulse Rate 96 H 97 H Respiratory Rate 17 17 Blood Pressure 182/89 H 168/81 H Pulse Oximetry 100 100 100 07/05/18 17:53 07/05/18 19:15 07/05/18 20:00 Temperature Pulse Rate 91 H 87 Respiratory Rate 17 20 Blood Pressure 193/86 H 160/70 H Pulse Oximetry 100 98 96 07/05/18 21:53 07/06/18 00:00 07/06/18 04:00 Temperature 98 F 97.4 F L Pulse Rate 89 83 80 Respiratory Rate 20 20 20 Blood Pressure 151/72 H 146/79 H 113/58 L Pulse Oximetry 98 98 95 Intake & Output 07/05/18 07/06/18 07/06/18 18:59 06:59 18:59 Intake Total 210 / 210 790 / 790 Balance 210 / 210 790 / 790 Weight 113.398 kg Intake: IV 210 / 210 790 / 790 NS Inj 1,000 ML @ 70 mls/hr IV. 210 / 210 790 / 790 CONT .[id number] [facility] Rx#:[id number] Other: # Voids 1 Narrative: GENERAL: in NAD, SKIN: Warm and dry. HEAD: Atraumatic. Normocephalic. EYES: Pupils equal and round. No scleral icterus. ENT: No nasal bleeding or discharge. Mucous membranes pink and moist. NECK: Trachea midline. No JVD. CARDIOVASCULAR: Regular rate and rhythm. RESPIRATORY: No accessory muscle use. GASTROINTESTINAL: Abdomen soft, non-tender, nondistended. MUSCULOSKELETAL: Extremities without clubbing, cyanosis, or edema. No obvious deformities. NEUROLOGICAL: Awake and alert. No aphasia, oriented x3, [place] acute back accident, fluent articulate, mild facial asymmetry reduced right nasolabial fold , OU 3-2mm, eomi, VFF, No drift, Motor grossly within normal limits. Five out of 5 muscle strength in the arms and legs. Tone normal in all 4 limbs, Sensory normal in all 4 extremities to pin, msr 1-2+ sym, no clonus, planterflexor, PSYCHIATRIC: Appropriate mood and affect; insight and judgment normal. - Constitutional no acute distress - Routine HEENT Exam Head: Present: normocephalic Eye: Present: EOMI Results - Labs CBC & Chem 7: 07/05/18 17:30 07/05/18 17:30 Labs: Laboratory Results - last 24 hr 07/05/18 07/05/18 07/05/18 17:30 17:30 17:30 WBC 13.5 H RBC 4.67 Hgb 12.9 L Hct 39.1 MCV 83.8 MCH 27.7 MCHC 33.1 RDW 16.0 Plt Count 282 MPV 9.6 Neut % (Auto) 80.2 H Lymph % (Auto) 12.0 [place] % (Auto) 6.5 Eos % (Auto) 0.5 Baso % (Auto) 0.8 Neut # (Auto) 10.9 H Lymph # (Auto) 1.6 [place] # (Auto) 0.9 Eos # (Auto) 0.1 Baso # (Auto) 0.1 WBC Differential . Differential Comment Auto diff final PT 11.4 INR 1.1 APTT 27.5 Fibrinogen 370 Sodium Potassium Chloride Carbon Dioxide Anion Gap BUN Creatinine Estimated GFR POC Glucose Random Glucose Calcium Total Bilirubin AST ALT Alkaline Phosphatase Total Creatine Kinase 43 Troponin I Less than 0.02 L Total Protein Albumin Urine Color Urine Clarity Urine pH Ur Specific [place] Urine Protein Urine Glucose (UA) Urine Ketones Urine Occult Blood Urine Nitrate Urine Bilirubin Urine Urobilinogen Ur Leukocyte Esterase Urine RBC Urine WBC Ur Squamous Epith Cells Hyaline Casts Urine Mucus Micro UA Comment Ur Microscopic Review Urine Culture Comments Blood Type Blood Type Recheck Antibody Screen 07/05/18 07/05/18 07/05/18 17:30 17:50 19:15 WBC RBC Hgb Hct MCV MCH MCHC RDW Plt Count MPV Neut % (Auto) Lymph % (Auto) [place] % (Auto) Eos % (Auto) Baso % (Auto) Neut # (Auto) Lymph # (Auto) [place] # (Auto) Eos # (Auto) Baso # (Auto) WBC Differential Differential Comment PT INR APTT Fibrinogen Sodium 134 L Potassium 3.6 Chloride 98 Carbon Dioxide 21.2 Anion Gap 15 BUN 13 Creatinine 1.38 H Estimated GFR 51 L POC Glucose Random Glucose 139 H Calcium 9.4 Total Bilirubin 0.5 AST 15 ALT 20 Alkaline Phosphatase 108 Total Creatine Kinase Troponin I Total Protein 7.5 Albumin 3.6 Urine Color Yellow Urine Clarity Hazy H Urine pH 7.0 Ur Specific [place] 1.013 Urine Protein 30 H Urine Glucose (UA) Negative Urine Ketones 20 Urine Occult Blood Negative Urine Nitrate Negative Urine Bilirubin Negative Urine Urobilinogen Less than 2 Ur Leukocyte Esterase Negative Urine RBC 1 Urine WBC 8 H Ur Squamous Epith Cells 3 Hyaline Casts 6 Urine Mucus Many H Micro UA Comment Cath-culture ind Ur Microscopic Review Not Reportable Urine Culture Comments Cath-cult indicated Blood Type O Positive Blood Type Recheck Required Antibody Screen Negative 07/06/18 07/06/18 07/06/18 00:21 06:27 08:17 WBC RBC Hgb Hct MCV MCH MCHC RDW Plt Count MPV Neut % (Auto) Lymph % (Auto) [place] % (Auto) Eos % (Auto) Baso % (Auto) Neut # (Auto) Lymph # (Auto) [place] # (Auto) Eos # (Auto) Baso # (Auto) WBC Differential Differential Comment PT INR APTT Fibrinogen Sodium Potassium Chloride Carbon Dioxide Anion Gap BUN Creatinine Estimated GFR POC Glucose 133 H 139 H 149 H Random Glucose Calcium Total Bilirubin AST ALT Alkaline Phosphatase Total Creatine Kinase Troponin I Total Protein Albumin Urine Color Urine Clarity Urine pH Ur Specific [place] Urine Protein Urine Glucose (UA) Urine Ketones Urine Occult Blood Urine Nitrate Urine Bilirubin Urine Urobilinogen Ur Leukocyte Esterase Urine RBC Urine WBC Ur Squamous Epith Cells Hyaline Casts Urine Mucus Micro UA Comment Ur Microscopic Review Urine Culture Comments Blood Type Blood Type Recheck Antibody Screen - Imaging Impressions Carotid Doppler Study 07/05/18 00:00 CONCLUSION: 1. Mild elevation of the peak systolic velocity of the left ICA suggesting 50- 69% stenosis, although ICA/CCA ratio suggest less than 50% stenosis. CTA of the carotids would be more sensitive for luminal stenosis confirmation. 2. Less than 50% stenosis involving the right ICA. Chest X-Ray 07/05/18 17:21 CONCLUSION: The lungs are clear. Head CT 07/05/18 17:21 CONCLUSION: 1. No acute intracranial abnormality. 2. Remote small right frontoparietal mid convexity infarct. . Head MRI 07/05/18 17:36 CONCLUSION: 1. Senescent changes with probable remote focal infarct in the right frontal parietal mid convexities. 2. Prominent deep white matter T2 prolongation most likely secondary to small vessel ischemic disease. 3. No acute abnormality. Specifically, no acute hemorrhage, infarction or mass. Head MRA 07/05/18 17:36 CONCLUSION: 1. Negative MRA [place] ([place]) non contrast. 2. Patent left posterior communicating artery. Review/Management - Diagnosis (1) Hypertensive urgency Code(s): I16.0 - Hypertensive urgency Status: Acute Current Visit: Yes (2) Weakness Code(s): R53.1 - Weakness Status: Acute Current Visit: Yes (3) History of pulmonary embolus (PE) Code(s): Z86.711 - Personal history of pulmonary embolism Status: Acute Current Visit: Yes - Review/Management Plan: Subacute to chronic feelings of generalized weakness MRI brain scan negative for acute stroke. Does have moderate white matter changes and possible old right watershed region infarcts Symptoms broad differentials would include cardiac, hypertension autoregulation related, orthostatic, vestibular, PMR MRA brain negative for vaso-occlusive disease or aneurysm Carotid ultrasound suggesting 50-60% stenosis of the left carotid, no focal symptoms to suggest this is a culprit vessel He does have renal insufficiency GFR in the 50s Recommendation Orthostatics Blood pressure control EEG 2D echo PT evaluation Check ESR CRP Continue oral anticoagulant Mild leukocytosis; medical to follow Mild renal insufficiency may need further workup with physicians up in [place] Follow exam
[2018-07-06 10:36] LABS: Chol/HDL Ratio 2.62 Ratio
[2018-07-06 10:51] LABS: Amphetamine Screen,Urine Neg (Neg); Barbiturate Screen,Urine Neg (Neg); Cannabinoid Screen,Urine Neg (Neg); Cocaine Screen,Urine Neg (Neg)
[2018-07-06 10:53] LABS: Opiate Screen,Urine Neg (Neg)
[2018-07-06] MEDS: Sod Chloride 0.9% Inj 1,000 ML IV.CONT SCH (12:40)
[2018-07-06 13:34] LABS: C-Reactive Protein 1.1 mg/dL (0.00-0.30)
[2018-07-06 14:00] LABS: Thyroid Stimulating Hormone 0.821 uIU/mL (0.358-3.740)
[2018-07-06 16:46] LABS: Hemoglobin A1c 6.7 % (4.3-6.0)
--- NOTE | 2018-07-06 16:59 | MG ---
cc: Sage Rajan MD, PhD TEST NUMBER: [id number] TECHNIQUE: A 17-channel EEG. DESCRIPTION: The background rhythm reveals symmetrical alpha rhythm. Frequency is about 8-9 Hz. Amplitude is about 10-20 microvolts. There is the expected anterior decrement to the response during drowsiness and slowing in the theta range. Rare muscle artifact is identified. The patient does fall asleep. In the tracing, sleep spindles are seen with vertex sharp waves. There are no epileptiform discharges. Photic stimulation reveals a well-developed driving response. INTERPRETATION: Normal electroencephalogram. Sage Rajan MD, PhD TED/es , 04:24 PM , 04:29 PM
--- NOTE | 2018-07-06 17:32 | ECHRPT ---
Indication: cva/tia CONCLUSIONS Normal left ventricular size. Wall thickness is normal. The left ventricular systolic function is normal with an estimated ejection fraction in the range of 60-65%. Trace mitral valve regurgitation. The estimated pulmonary arterial pressure is 22 mmHg. BP: / HR: Rhythm: MEASUREMENTS (Male / Female) Normal Values Technical Quality: 2D ECHO LV Diastolic Diameter PLAX 5.1 cm 4.2 - 5.9 / 3.9 - 5.3 cm LV Systolic Diameter PLAX 3.5 cm IVS Diastolic Thickness 0.9 cm 0.6 - 1.0 / 0.6 - 0.9 cm LVPW Diastolic Thickness 0.9 cm 0.6 - 1.0 / 0.6 - 0.9 cm LV Relative Wall Thickness 0.4 RV Internal Dim ED PLAX 3.1 cm LVOT Diameter 2.3 cm Aortic Root Diameter 2.9 cm LA Systolic Diameter LX 2.5 cm 3.0 - 4.0 / 2.7 - 3.8 cm LV Ejection Fraction MOD 4C 65.9 % LV Ejection Fraction 4C AL 67.7 % M-MODE Aortic Root Diameter MM 3.4 cm LA Systolic Diameter MM 4.3 cm LA Ao Ratio MM 1.3 AV Cusp Separation MM 1.3 cm DOPPLER AV Peak Velocity 187.0 cm/s AV Peak Gradient 14.0 mmHg LVOT Peak Velocity 118.0 cm/s LVOT Peak Gradient 5.6 mmHg AV Area Cont Eq pk 2.6 cm Mitral E Point Velocity 63.7 cm/s Mitral A Point Velocity 111.0 cm/s Mitral E to A Ratio 0.6 LV E' Lateral Velocity 8.0 cm/s Mitral E to LV E' Lateral Ratio 8.0 LV E' Septal Velocity 7.2 cm/s Mitral E to LV E' Septal Ratio 8.9 TR Peak Velocity 176.0 cm/s TR Peak Gradient 12.4 mmHg Right Atrial Pressure 10.0 mmHg Pulmonary Artery Systolic Pressu 22.4 mmHg Right Ventricular Systolic Press 22.4 mmHg PV Peak Velocity 53.6 cm/s PV Peak Gradient 1.2 mmHg FINDINGS LEFT VENTRICLE Normal left ventricular size. Wall thickness is normal. The left ventricular systolic function is normal with an estimated ejection fraction in the range of 60-65%. RIGHT VENTRICLE Normal right ventricular size and systolic function. LEFT ATRIUM The left atrial size is normal. RIGHT ATRIUM The right atrial size is normal. ATRIAL SEPTUM Normal atrial septal thickness without atrial level shunting by limited color doppler interrogation. AORTA The aortic root and proximal ascending aorta are normal in size on limited imaging. MITRAL VALVE Trace mitral valve regurgitation. AORTIC VALVE Trileaflet aortic valve. No aortic valve stenosis or regurgitation. TRICUSPID VALVE The estimated pulmonary arterial pressure is 22 mmHg. PULMONARY VALVE No pulmonary valve regurgitation or stenosis. VESSELS The inferior vena cava is normal in size. PERICARDIUM No pericardial effusion. Waylon Menjivar MD, FACC, FSCAI (Electronically Signed) Final Date:06 July 2018 17:30
[2018-07-07] MEDS: Sod Chloride 0.9% Inj 1,000 ML IV.CONT SCH (01:55)
[2018-07-07 07:10] LABS: Baso # (Auto) 0.1 th/mm3 (0.0-0.2); Baso % (Auto) 1.2 % (0.0-2.0); Eos # (Auto) 0.4 th/mm3 (0.0-0.4); Eos % (Auto) 3.8 % (0.0-4.0); Hemoglobin 13.1 gm/dL (13.0-17.0); Lymph # (Auto) 2.2 th/mm3 (1.0-4.8); Lymph % (Auto) 23.4 % (9.0-44.0); Mean Corpuscular HGB Conc 33.5 % (32.0-36.0); Mean Corpuscular Hemoglobin 27.6 pg (27.0-34.0); Mean Corpuscular Volume 82.4 fL (80.0-100.0); Mean Platelet Volume 9.6 fL (7.0-11.0); Mono # (Auto) 0.9 th/mm3 (0.0-0.9); Mono % (Auto) 9.5 % (0.0-8.0); Neut # (Auto) 5.9 th/mm3 (1.8-7.7); Neut % (Auto) 62.1 % (16.0-70.0); Platelet Count 274 th/mm3 (150-450); Red Blood Count 4.73 mil/mm3 (4.50-5.90); Red Cell Distribution Width 16.4 % (11.6-17.2); White Blood Count 9.5 th/mm3 (4.0-11.0)
[2018-07-07 07:20] LABS: Calcium 9.3 mg/dL (8.5-10.1); Carbon Dioxide 23.9 meq/L (21.0-32.0); Magnesium 2.1 mg/dL (1.5-2.5); Potassium 3.7 meq/L (3.5-5.1)
[2018-07-07] MEDS: Insulin NovoLOG Aspart Correctional Sugar Inj SQ SCH (08:10)
[2018-07-07] MEDS: Allopurinol 100 MG Tablet PO SCH (08:29)
[2018-07-07] MEDS: dilTIAZem CD 300 MG Capsule PO SCH (08:29)
[2018-07-07] MEDS: Rivaroxaban 20 MG Tablet PO SCH (08:29)
[2018-07-07] MEDS: Famotidine 20 MG Tablet PO SCH (08:29)
--- NOTE | 2018-07-07 09:50 | P.PNNEU ---
Subjective Subjective Comments: no cp, no dyspnea, feels stronger Active Medications: Active Medications Allopurinol (Zyloprim) 200 mg PO DAILY [facility] Last Admin: 07/07/18 08:29 Dose: 200 mg Dextrose (D50w Vial) 50 ml IV.PUSH UNSCH PRN PRN Reason: PER HYPOGLYCEMIA PROTOCOL Diltiazem HCl (Cardizem Cd 24hr) 300 mg PO DAILY [facility] Last Admin: 07/07/18 08:29 Dose: 300 mg Famotidine (Pepcid) 20 mg PO DAILY [facility] Last Admin: 07/07/18 08:29 Dose: 20 mg Glucagon (Glucagon Inj) 1 mg OTHER UNSCH PRN PRN Reason: for Hypoglycemia Protocol Hydrochlorothiazide (Microzide) 12.5 mg PO DAILY [facility] Last Admin: 07/07/18 08:29 Dose: 12.5 mg Sodium Chloride (Ns Inj) 1,000 mls @ 70 mls/hr IV.CONT .[id number] [facility] Last Infusion: 07/07/18 08:35 Dose: Infused Ceftriaxone Sodium 1,000 mg/ (Sodium Chloride) 100 mls @ 200 mls/hr IV.SIG Q24H [facility] Last Infusion: 07/06/18 17:33 Dose: Infused Insulin Aspart (Novolog Insulin Correctional Sugar Inj) 0 unit SQ ACHS [facility]; Protocol Last Admin: 07/07/18 08:10 Dose: Not Given Insulin Human NPH (Novolin N Inj) 20 units SQ DAILY@1800 [facility] Last Admin: 07/06/18 17:33 Dose: 20 units Losartan Potassium (Cozaar) 1 mg PO DAILY [facility] Last Admin: 07/07/18 08:29 Dose: 1 mg Pantoprazole Sodium (Protonix) 60 mg PO DAILY [facility] Last Admin: 07/07/18 08:29 Dose: 60 mg Rivaroxaban (Xarelto) 20 mg PO DAILY [facility] Last Admin: 07/07/18 08:29 Dose: 20 mg Sodium Chloride (Ns Flush) 2 ml IV.FLUSH BID [facility] Last Admin: 07/07/18 08:30 Dose: 2 ml Sodium Chloride (Ns Flush) 2 ml IV.FLUSH PRN PRN PRN Reason: FLUSH AFTER USING IV ACCESS Allergies/Adverse Reactions: Allergies Allergy/AdvReac Type Severity Reaction Status Date / Time Iodine and Iodide Containing Allergy Severe Swelling Verified 06/16/18 12:30 Produc of Lip/Tongue/Throat meperidine [From Demerol] Allergy Severe Hives Verified 06/16/18 12:30 phenytoin [From Dilantin] Allergy Severe Hives Verified 06/16/18 12:30 Review of Systems All other systems reviewed negative except as stated in HPI Physical Exam Vital signs: Vital Signs 07/06/18 12:00 07/06/18 16:00 07/06/18 16:47 Temperature 97.7 F 97.1 F L Pulse Rate 86 72 74 Respiratory Rate 20 20 Blood Pressure 167/91 H 165/70 H Pulse Oximetry 94 L 96 07/06/18 23:57 07/07/18 08:00 Temperature 97.5 F L 97.7 F Pulse Rate 72 87 Respiratory Rate 18 20 Blood Pressure 142/64 H 155/76 H Pulse Oximetry 96 94 L Intake & Output 07/06/18 07/07/18 07/07/18 18:59 06:59 18:59 Intake Total 1890 / 1890 700 / 700 Balance 1890 / 1890 700 / 700 Weight 119.6 kg Intake: IV 1890 / 1890 700 / 700 NS Inj 1,000 ML @ 70 mls/hr IV. 1790 / 1790 700 / 700 CONT .[id number] Rx#:[id number] Rocephin Inj 1,000 MG In NS Inj 100 / 100 100 ML @ 200 mls/hr IV.SIG Q24H [facility] Rx#:[id number] Other: # Voids 2 Date of Last Bowel Movement 07/06/18 # Bowel Movements 1 0 Narrative: GENERAL: in NAD, SKIN: Warm and dry. HEAD: Atraumatic. Normocephalic. EYES: Pupils equal and round. No scleral icterus. ENT: No nasal bleeding or discharge. Mucous membranes pink and moist. NECK: Trachea midline. No JVD. CARDIOVASCULAR: Regular rate and rhythm. RESPIRATORY: No accessory muscle use. GASTROINTESTINAL: Abdomen soft, non-tender, nondistended. MUSCULOSKELETAL: Extremities without clubbing, cyanosis, or edema. No obvious deformities. NEUROLOGICAL: Awake and alert. No aphasia, oriented x3, [place] acute back accident, fluent articulate, mild facial asymmetry reduced right nasolabial fold , OU 3-2mm, eomi, VFF, No drift, Motor grossly within normal limits. Five out of 5 muscle strength in the arms and legs. Tone normal in all 4 limbs, Sensory normal in all 4 extremities to pin, msr 1-2+ sym, no clonus, planterflexor, PSYCHIATRIC: Appropriate mood and affect; insight and judgment normal. - Constitutional no acute distress - Routine HEENT Exam Head: Present: normocephalic Eye: Present: EOMI Objective Laboratory Results - last 24 hr 07/06/18 07/06/18 07/06/18 07:36 07:36 10:05 WBC RBC Hgb Hct MCV MCH MCHC RDW Plt Count MPV Neut % (Auto) Lymph % (Auto) [place] % (Auto) Eos % (Auto) Baso % (Auto) Neut # (Auto) Lymph # (Auto) [place] # (Auto) Eos # (Auto) Baso # (Auto) WBC Differential Differential Comment ESR Sodium Potassium Chloride Carbon Dioxide Anion Gap BUN Creatinine Estimated GFR POC Glucose Random Glucose Hemoglobin A1c 6.7 H Calcium Magnesium Ammonia Total Creatine Kinase C-Reactive Protein Triglycerides 136 Cholesterol 113 L LDL Cholesterol, Calc 43 HDL Cholesterol 43.0 Cholesterol/HDL Ratio 2.62 Vitamin B12 TSH Urine Opiates Screen Neg Ur Barbiturates Screen Neg Ur Amphetamines Screen Neg U Benzodiazepines Scrn Neg Urine Cocaine Screen Neg U Cannabinoids Screen Neg 07/06/18 07/06/18 07/06/18 12:21 12:21 12:21 WBC RBC Hgb Hct MCV MCH MCHC RDW Plt Count MPV Neut % (Auto) Lymph % (Auto) [place] % (Auto) Eos % (Auto) Baso % (Auto) Neut # (Auto) Lymph # (Auto) [place] # (Auto) Eos # (Auto) Baso # (Auto) WBC Differential Differential Comment ESR 12 Sodium Potassium Chloride Carbon Dioxide Anion Gap BUN Creatinine Estimated GFR POC Glucose Random Glucose Hemoglobin A1c Calcium Magnesium Ammonia 16 Total Creatine Kinase 77 C-Reactive Protein 1.10 H Triglycerides Cholesterol LDL Cholesterol, Calc HDL Cholesterol Cholesterol/HDL Ratio Vitamin B12 296 TSH 0.821 Urine Opiates Screen Ur Barbiturates Screen Ur Amphetamines Screen U Benzodiazepines Scrn Urine Cocaine Screen U Cannabinoids Screen 07/06/18 07/06/18 07/06/18 12:37 16:39 22:16 WBC RBC Hgb Hct MCV MCH MCHC RDW Plt Count MPV Neut % (Auto) Lymph % (Auto) [place] % (Auto) Eos % (Auto) Baso % (Auto) Neut # (Auto) Lymph # (Auto) [place] # (Auto) Eos # (Auto) Baso # (Auto) WBC Differential Differential Comment ESR Sodium Potassium Chloride Carbon Dioxide Anion Gap BUN Creatinine Estimated GFR POC Glucose 128 H 133 H 142 H Random Glucose Hemoglobin A1c Calcium Magnesium Ammonia Total Creatine Kinase C-Reactive Protein Triglycerides Cholesterol LDL Cholesterol, Calc HDL Cholesterol Cholesterol/HDL Ratio Vitamin B12 TSH Urine Opiates Screen Ur Barbiturates Screen Ur Amphetamines Screen U Benzodiazepines Scrn Urine Cocaine Screen U Cannabinoids Screen 07/07/18 07/07/18 07/07/18 06:16 06:16 07:58 WBC 9.5 RBC 4.73 Hgb 13.1 Hct 39.0 MCV 82.4 MCH 27.6 MCHC 33.5 RDW 16.4 Plt Count 274 MPV 9.6 Neut % (Auto) 62.1 Lymph % (Auto) 23.4 [place] % (Auto) 9.5 H Eos % (Auto) 3.8 Baso % (Auto) 1.2 Neut # (Auto) 5.9 Lymph # (Auto) 2.2 [place] # (Auto) 0.9 Eos # (Auto) 0.4 Baso # (Auto) 0.1 WBC Differential . Differential Comment Auto diff final ESR Sodium 136 Potassium 3.7 Chloride 101 Carbon Dioxide 23.9 Anion Gap 11 BUN 12 Creatinine 1.37 H Estimated GFR 51 L POC Glucose 140 H Random Glucose 141 H Hemoglobin A1c Calcium 9.3 Magnesium 2.1 Ammonia Total Creatine Kinase C-Reactive Protein Triglycerides Cholesterol LDL Cholesterol, Calc HDL Cholesterol Cholesterol/HDL Ratio Vitamin B12 TSH Urine Opiates Screen Ur Barbiturates Screen Ur Amphetamines Screen U Benzodiazepines Scrn Urine Cocaine Screen U Cannabinoids Screen Microbiology 07/05/18 17:50 Urine Culture - Final Clean Catch Urine 10-50,000 cfu/mL mixed gram positive [place] (probable contaminants) Review/Management - Diagnosis (1) Hypertensive urgency Code(s): I16.0 - Hypertensive urgency Status: Acute Current Visit: Yes (2) Weakness Code(s): R53.1 - Weakness Status: Acute Current Visit: Yes (3) History of pulmonary embolus (PE) Code(s): Z86.711 - Personal history of pulmonary embolism Status: Acute Current Visit: Yes - Review/Management Plan: Subacute to chronic feelings of generalized weakness MRI brain scan negative for acute stroke. Does have moderate white matter changes and possible old right watershed region infarcts Symptoms broad differentials would include cardiac, hypertension autoregulation related, orthostatic, vestibular, PMR MRA brain negative for vaso-occlusive disease or aneurysm Carotid ultrasound suggesting 50-60% stenosis of the left carotid, no focal symptoms to suggest this is a culprit vessel He does have renal insufficiency GFR in the 50s Recommendation neuro stable low b12- supplement Orthostatics-not documented Blood pressure control EEG-nml 2D echo-nml PT evaluation Continue oral anticoagulant Mild leukocytosis; medical to follow Mild renal insufficiency may need further workup with physicians up in [place] d/c planning outpatient f/u
--- NOTE | 2018-07-07 11:26 | P.PNIM ---
Subjective Interval history: Follow-up confusion. He is doing okay resolved confusion. States he is depressed requesting med denies SI. Dw Neuro start zoloft aware of possible SE including SI Physical Exam Vital signs: Last Vital Signs Temp 97.7 F 07/07/18 08:00 Pulse 87 07/07/18 08:00 Resp 20 07/07/18 08:00 BP 155/76 H 07/07/18 08:00 Pulse Ox 94 L 07/07/18 08:00 Intake & Output 07/05/18 07/06/18 07/07/18 07/08/18 06:59 06:59 06:59 06:59 Intake Total 210 / 210 1890 / 1890 700 / 700 Balance 210 / 210 1890 / 1890 700 / 700 Weight 113.398 kg 119.6 kg Narrative: GENERAL: in NAD, SKIN: Warm and dry. CARDIOVASCULAR: Regular rate and rhythm. RESPIRATORY: No accessory muscle use. GASTROINTESTINAL: Abdomen soft, non-tender, nondistended. MUSCULOSKELETAL: Extremities without clubbing, cyanosis, or edema. No obvious deformities. NEUROLOGICAL: Awake and alert. No aphasia, oriented x3, nonfocal PSYCHIATRIC: Appropriate mood and affect; insight and judgment normal. Results Labs CBC & Chem 7: 07/07/18 06:16 07/07/18 06:16 Labs: Microbiology 07/05/18 17:50 Clean Catch Urine Urine Culture - Final 10-50,000 cfu/mL mixed gram positive [place] (probable contaminants) Assessment and Plan (1) Hypertensive urgency: Code(s): I16.0 - Hypertensive urgency Status: Acute (2) Weakness: Code(s): R53.1 - Weakness Status: Acute (3) History of pulmonary embolus (PE): Code(s): Z86.711 - Personal history of pulmonary embolism Status: Acute Plan 1. Confusion and dysarthria secondary to hypertensive encephalopathy versus TIA. 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 No acute abnormality identified. Carotid ultrasound/echo and EEG unremarkable Neurology consulted, appreciate assistance. PT/OT/speech LDL 43 2. Atrial fibrillation Continue home diltiazem Continue anticoagulation with Xarelto as no bleed seen on imaging 3. Diabetes mellitus Sliding scale insulin and restart long-acting insulin if tolerating p.o. Monitor blood glucose 4. GERD/gastroparesis/hypertension Continue home medications 5. Chronic kidney disease probably stage III Creatinine 1.38, baseline Monitor renal function 6. Leukocytosis with abnormal urinalysis. Resolved. Follow-up urine culture with contaminants. Empiric Rocephin will discontinue 7. Depression with no suicidal ideations. Trial Zoloft. Patient has [place] insurance - phone: , file #[id number]. Request all medical records be emailed to: [email or web address] Case management consulted to assist with this. FEN Diabetic diet Electrolytes: Monitor and replete as needed NS at 70 cc/hour will be discontinued if not orthostatic Xarelto Discharge patient to home Condition on discharge: Improved Regular Diet as tolerated [employer] Devi activity no driving Rx written: Zoloft Follow-up with primary care physician and neurology Progress Note: Quality VTE Deep Vein Thrombosis/Pulmonary Embolism Present on Admission: No
[2018-07-08] MEDS ORDERED: Sertraline 50 MG Tablet PO SCH (09:00)
== END 2018-07-07 13:01 | disposition home or self-care (01) ==
LOC: NEDA 16:14 → NEPE 16:14 → N05 23:08
PROVIDERS: ADMIT Internal Medicine; ATTEND Internal Medicine
DX: R11.0 Nausea; N18.3 Chronic kidney disease, stage 3 (moderate); Z86.711 Personal history of pulmonary embolism; R47.1 Dysarthria and anarthria; E11.43 Type 2 diabetes mellitus with diabetic autonomic (poly)neuropathy; Z87.891 Personal history of nicotine dependence; Z82.49 Family history of ischemic heart disease and other diseases of the circulatory system; Z79.01 Long term (current) use of anticoagulants; M10.9 Gout, unspecified; Z90.49 Acquired absence of other specified parts of digestive tract; Z86.73 Personal history of transient ischemic attack (TIA), and cerebral infarction without residual deficits; I16.0 Hypertensive urgency; F32.9 Major depressive disorder, single episode, unspecified; K21.9 Gastro-esophageal reflux disease without esophagitis; Z79.899 Other long term (current) drug therapy; E11.22 Type 2 diabetes mellitus with diabetic chronic kidney disease; Z79.4 Long term (current) use of insulin; I12.9 Hypertensive chronic kidney disease with stage 1 through stage 4 chronic kidney disease, or unspecified chronic kidney disease; I48.91 Unspecified atrial fibrillation; R63.0 Anorexia; G25.81 Restless legs syndrome; K31.84 Gastroparesis; Z91.048 Other nonmedicinal substance allergy status; Z83.3 Family history of diabetes mellitus